=== PATIENT | female | born 1950 | race Two or more races ===

== ENCOUNTER → 2016-09-10 | Outpatient (CLI) | payer OTHER ==
--- NOTE | 2016-09-10 12:50 | KCIC ---
PROCEDURE Single-view chest HISTORY TB exposure COMPARISON None FINDINGS Single-view of the chest is submitted. There is no dependent pleural fluid or pneumothorax. There is no lobar consolidation. There is some atherosclerotic calcification near aortic arch. Heart size is considered within normal limits given technique. IMPRESSION There is no evidence of acute cardiopulmonary disease. There are no radiographic findings suggestive of active tuberculosis. Electronically signed by: Pool Louie MD (Sep 10, 2016 12:49:08)
== END | disposition home or self-care (01) ==
LOC: KCIC 11:00
PROVIDERS: ATTEND Family Medicine
DX: Z20.1 Contact with and (suspected) exposure to tuberculosis (principal)
CPT/HCPCS: 71010

== ENCOUNTER → 2016-12-31 | Outpatient (CLI) | payer OTHER ==
--- NOTE | 2016-12-31 14:43 | KCIC ---
PROCEDURE Portable chest radiograph. HISTORY Positive TB reactor. TECHNIQUE PA chest radiograph was obtained. COMPARISON None. FINDINGS There may be minimal streaky atelectasis or less likely infiltrate in the left lung base. There is no consolidation, nodule, or cavitary lesion. The heart is not enlarged and there is no heart failure. There are degenerative changes in the spine. IMPRESSION Minimal streaky atelectasis or less likely infiltrate in the left lung base. Electronically signed by: Jm Wheat MD (December 31, 2016 14:41:59)
== END | disposition home or self-care (01) ==
LOC: KCIC 14:19
PROVIDERS: ATTEND Family Medicine
DX: R76.11 Nonspecific reaction to tuberculin skin test without active tuberculosis (principal)
CPT/HCPCS: 71010